=== PATIENT | female | born 1990 | race Caucasian/White ===

== ENCOUNTER 2020-02-01 19:03 | Emergency (ER) | payer MEDICAID ==
[~2020-02-01] VITALS: Ht 177.8 cm; Wt 85.4 kg
[2020-02-01] MEDS ORDERED: SODIUM CHLORIDE FLUSH 10ML SYR IVF ONE (19:30)
[2020-02-01] MEDS ORDERED: SODIUM CHLORIDE 0.9% 1,000ML IVBOLUS ONE (19:30)
[2020-02-01] MEDS ORDERED: ONDANSETRON 2MG/ML, 2ML IVPush ONE (19:30)
[2020-02-01] MEDS ORDERED: ONDANSETRON 2MG/ML, 2ML ONE (19:34)
[2020-02-01 19:59] LABS: BASOPHILS # (AUTO) 0.01 x10^3/uL (0-0.1); BASOPHILS % (AUTO) 0 % (0-1); EOSINOPHILS # (AUTO) 0.13 x10^3/uL (0-0.4); EOSINOPHILS % (AUTO) 2 % (1-7); LYMPHOCYTES # (AUTO) 2.64 x10^3/uL (1-3.4); LYMPHOCYTES % (AUTO) 37 % (22-44); MD NO; MEAN CORPUSCULAR HEMOGLOBIN 30.7 pg (27.0-34.8); MEAN CORPUSCULAR HGB CONC 32.7 g/dL (32.4-35.8); MEAN PLATELET VOLUME 7.8 fL (7.4-10.4); MONOCYTES # (AUTO) 0.39 x10^3/uL (0.2-0.8); MONOCYTES % (AUTO) 6 % (2-9); NEUTROPHILS # (AUTO) 3.88 x10^3/uL (1.8-6.8); NEUTROPHILS % (AUTO) 55 % (42-75); PLATELET COUNT 282 x10^3/uL (130-400); RED BLOOD COUNT 4.73 x10^6/uL (3.82-5.3); RED CELL DISTRIBUTION WIDTH 13.1 % (9.6-15.2)
[2020-02-01 20:03] LABS: ALANINE AMINOTRANSFERASE 18 U/L (12-78); ALBUMIN 3.5 g/dL (3.4-5.0); ANION GAP 7 mmol/L (5-15); CALCIUM 8.7 mg/dL (8.5-10.1); CHLORIDE 107 mmol/L (98-107); CREATININE 1.02 mg/dL (0.55-1.02)
[2020-02-01 20:07] LABS: ALKALINE PHOSPHATASE 39 U/L (45-117); BILIRUBIN,TOTAL 0.2 mg/dL (0.2-1.0); TOTAL PROTEIN 7.9 g/dL (6.4-8.2)
[2020-02-01 20:39] LABS: MICROSCOPIC NOT IND
--- NOTE | 2020-02-01 21:09 | NUR ---
RECEIVED REPORT FROM NORMAN NAGEL. PT SITTING IN BED, READING, NO SIGNS OF DISTRESS, RESPIRATIONS EVEN AND UNLABORED. PT D/C'D SELF FROM MONITORS TO GO TO BATHROOOM. AMBULATORY TO BATHROOM WITH STEADY GAIT.
--- NOTE | 2020-02-01 21:29 | NUR ---
ERP BACK TO BEDSIDE TO UPDATE PT ON POC.
--- NOTE | 2020-02-01 22:32 | NUR ---
PT SITTING ON PHONE, NO SIGNS OF DISTRESS.
--- NOTE | 2020-02-01 22:54 | NUR ---
VISITOR AT BEDSIDE.
[2020-02-01 23:08] VITALS: BP 92/71
== END 2020-02-01 23:10 | disposition home or self-care (01) ==
LOC: ED 20:13
DX: M79.10 Myalgia, unspecified site (principal); R11.0 Nausea; R51 Headache; R42 Dizziness and giddiness; R53.83 Other fatigue; M54.2 Cervicalgia; R94.31 Abnormal electrocardiogram [ECG] [EKG]
CPT/HCPCS: 36415; 80053; 81003; 83690; 84443; 84703; 85025; 93005; 96361; 96374; 99284; J2405; J7030